=== PATIENT | female | born 1960 | race Caucasian/White ===

== ENCOUNTER 2019-10-24 06:48 | Day surgery (SDC) | payer OTHER ==
[2019-10-12 10:35] VITALS: BMI 29.2
[2019-10-24] MEDS ORDERED: BUPIVACAINE HCL 0.25% 125 MG/50 ML VIAL ONE (07:21)
[2019-10-24] MEDS ORDERED: LIDOCAINE HCL 2% (20ML MULTI-DOSE VIAL) ONE (07:21)
[2019-10-24] MEDS ORDERED: MIDAZOLAM HCL 2 MG/2 ML SINGLE DOSE VIAL ONE (08:45)
[2019-10-24] MEDS ORDERED: SUCCINYLCHOLINE CHLORIDE 200 MG/10 ML SYRINGE ONE (08:46)
[2019-10-24] MEDS ORDERED: PROPOFOL 20 ML ONE ×2 (08:46)
[2019-10-24] MEDS ORDERED: LIDOCAINE HCL/PF 2% SDV 5ML VIAL ONE (08:51)
[2019-10-24 10:02] VITALS: TEMP 97.5
[2019-10-24] MEDS ORDERED: ONDANSETRON 4 MG/2 ML VIAL IVPUSH PRN (10:33)
[2019-10-24] MEDS ORDERED: oxyCODONE HCL 5 MG TABLET PO PRN (10:33)
[2019-10-24] MEDS ORDERED: LACTATED RINGERS SOLUTION 1,000 ML IV SCH (10:45)
[2019-10-24] MEDS ORDERED: FAMOTIDINE 20 MG/50 ML IVPB 20 MG/50 ML MG IVPB ONE ×2 (11:12→15:48)
[2019-10-24] MEDS ORDERED: FAMOTIDINE 20 MG PREMIXED IVPB IVPB ONE (11:24)
[2019-10-24 12:43] VITALS: BP 144/72; PULSE 66
--- NOTE | 2019-10-25 12:52 | OP ---
DATE OF OPERATION: 10/24/2019 PREOPERATIVE DIAGNOSIS: Left wrist mass. POSTOPERATIVE DIAGNOSIS: Left wrist mass. OPERATIVE PROCEDURE: Left wrist mass excision. SURGEON: Royce Hubbard MD ANESTHESIA: General. COMPLICATIONS: None. ESTIMATED BLOOD LOSS: Minimal. INDICATIONS FOR PROCEDURE: The patient is a 59-year-old female with an ulnar-sided wrist mass. She is indicated for operative treatment. Risks, benefits, and alternatives were discussed with patient at length. Proper informed consent was obtained. PROCEDURE: After proper identification of patient and correct operative site, patient brought to the operating room and placed supine on the operating room table with prominences well padded. General anesthesia was given. Left upper extremity was prepped and draped in the usual sterile fashion. A well-padded tourniquet was placed with a sterile prep. Esmarch bandage used to exsanguinate left upper extremity. Tourniquet was inflated to 250 mmHg. A longitudinal incision was made over the mass which was on the ulnar aspect of the wrist. Incision was taken sharply through the skin with blunt and sharp dissection through subcutaneous tissues, carefully dissecting neurovascular structures. The mass was found to be emanating from the ulnar wrist joint. It was found to be a mix of solid and cystic tissues and was excised in whole all the way down to the joint capsule where a moderate synovitis was noted and this was removed too and sent as part of the pathology. The wound was irrigated with saline. Cultures were taken. Wound was repaired with 4-0 Vicryl and 4-0 Monocryl suture. Steri-Strips, sterile dressings were applied. Patient reversed from anesthesia and brought to recovery room in stable condition. She tolerated procedure well. ROYCE HUBBARD M.D. ANNMARIE/[id number]
--- NOTE | 2019-10-29 16:45 | PATH ---
Surgical Pathology Report Patient Name: MOLLY DAS [facility]. Rec. #: [id number] /Age/Gender: 1960 (Age: 59) / F Account: [id number] Location: [facility] Taken: 10/24/2019 Received: 10/24/2019 Reported: 10/29/2019 Physicians: Royce Lindo M.D. Specimen(s) Received LEFT WRIST MASS Clinical History Left wrist mass Final Diagnosis WRIST MASS, LEFT, EXCISION: CONSISTENT WITH GANGLION CYST. Electronically Signed Dolores Singh M.D. Gross Description Received in formalin labeled "left wrist mass," is a 0.9 x 0.6 x 0.5 cm lo-yellow portion of soft tissue. The specimen is bisected and entirely submitted in one cassette. 10/26/2019 [facility]10/26/2019
== END 2019-10-24 12:15 | disposition home or self-care (01) ==
LOC: FASU 06:48
PROVIDERS: ATTEND Orthopaedic Surgery Hand Surgery
PROC: 0LB60ZZ Excision of Left Lower Arm and Wrist Tendon, Open Approach (ICD-10-PCS; principal; 2019-10-24 09:01)
DX: M67.432 Ganglion, left wrist (principal)
CPT/HCPCS: 87070; 87102; 87116; 87205; 87206; 87210; 88304-TC; 94760